=== PATIENT | female | born 1975 | race Caucasian/White ===

== ENCOUNTER 2021-01-12 13:03 | Emergency (ER) | payer OTHER ==
[2021-01-12 14:22] LABS: BILIRUBIN NEGATIVE (NEGATIVE); BLOOD TRACE-INTACT Ery/uL (NEGATIVE); CLARITY CLEAR (CLEAR); COLOR YELLOW (YELLOW); GLUCOSE (U) NORMAL (NORMAL); LEUKOCYTES NEGATIVE Leu/uL (NEGATIVE); NITRITE NEGATIVE (NEGATIVE); PROTEIN 2+ mg/dL (NEGATIVE); SPECIFIC GRAVITY 1.015 (1.001-1.030); UROBILINOGEN 0.2 mg/dL (0.2-1.0)
[2021-01-12 14:28] LABS: BASOPHIL 0.2 % (0-2); EOSINOPHIL 0 % (0-5); HCT 39.3 % (37.0-47.0); HGB 13.1 g/dl (12.5-16.0); LYMPHOCYTE 3.5 % (15-48); MCH 27.4 pg (25.0-31.0); MCHC 33.3 g/dL (32.0-36.0); MCV 82.2 fL (78.0-100.0); MONOCYTE 5.3 % (0-12); MPV 9.3 fL (6.0-9.5); NRBC 0; PLT 378 K/uL (150-400); RBC 4.78 M/uL (4.20-5.40); RDW 13.2 % (11.5-14.0); WBC 23.5 K/uL (4.0-10.5)
[2021-01-12 14:29] LABS: NEUTROPHIL 90.4 % (41-80)
[2021-01-12 14:37] LABS: BACTERIA 2+
[2021-01-12 14:42] LABS: BUN/CREAT RATIO (CALC) 24.1 RATIO; CREATININE 0.79 mg/dL (0.51-0.95)
[2021-01-12 14:51] LABS: LACTIC ACID 1.4 mmol/L (0.4-1.9)
[2021-01-12 14:52] LABS: CORONAVIRUS 2019 SARS-COV-2 NEGATIVE (NEGATIVE); INFLUENZA A NAA NEGATIVE (NEGATIVE)
[2021-01-12 15:18] LABS: ALBUMIN 3.4 g/dL (3.4-5.0); BILIRUBIN - DIRECT 0.2 mg/dL (0.00-0.20); BILIRUBIN - TOTAL 0.7 mg/dL (0.2-1.0); GLOBULIN (CALCULATION) 4.1 g/dL; TOTAL PROTEIN 7.5 g/dL (6.4-8.2)
== END 2021-01-12 20:14 | disposition other institution (70) ==
LOC: FER 13:03
PROVIDERS: Emergency Medicine
DX: A41.9 Sepsis, unspecified organism (principal); Z98.84 Bariatric surgery status; Z20.822 Contact with and (suspected) exposure to COVID-19
CPT/HCPCS: 36415; 71045; 71260; 80048; 80076; 81001; 83605; 84145; 84484; 85025; 87040; 87088; J1170; J2405; J2543; J7030; Q9967; U0002